=== PATIENT | male | born 1980 | race Caucasian/White ===

== ENCOUNTER 2021-04-06 09:52 | Emergency (ER) | payer SELFPAY ==
[2021-04-06] MEDS ORDERED: SODIUM CHLORIDE 0.9% 500 ML IVB ONE (10:15)
[2021-04-06] MEDS ORDERED: SODIUM CHLORIDE 0.9% 1,000 ML IV ONE (10:15)
[2021-04-06] MEDS ORDERED: OLANZapine 5 MG TAB PO ONE (11:15)
[2021-04-06] MEDS ORDERED: OLANZapine 5 MG TAB ONE (12:09)
[2021-04-06 20:53] LABS: Urine Bacteria NONE SEEN /hpf (None Seen); Urine Blood Negative /uL (Negative); Urine Specific Gravity 1.001 (1.001-1.035); Urine WBC <1 /hpf (0 - 3)
[2021-04-06 21:05] LABS: Alcohol, Urine < 3.0 mg/dL (0-10); Amphetamine Screen, Urine NEGATIVE (NEGATIVE); Barbiturate Scree,Urine NEGATIVE (NEGATIVE); Benzodiazephine Screen, Urine NEGATIVE (NEGATIVE); Cannabinoid Screen, Urine POSITIVE (NEGATIVE); Cocaine Screen, Urine NEGATIVE (NEGATIVE); Opiate Scree,Urine NEGATIVE (NEGATIVE); Phencyclidine Screen, Urine NEGATIVE (NEGATIVE)
[2021-04-07] MEDS ORDERED: HALOPERIDOL LACTATE 5 MG/ML INJ VIAL IM PRN (01:45)
[2021-04-07] MEDS ORDERED: diphenhdrAMINE HCL 50 MG/1 ML VL IM PRN (01:45)
[2021-04-07] MEDS ORDERED: LORazepam 2MG/ML-1ML VIAL IM PRN (01:45)
[2021-04-07] MEDS ORDERED: OLANZapine 5 MG TAB PO SCH (10:00)
[2021-04-07 10:31] VITALS: BP 136/77
== END 2021-04-07 12:23 | disposition left against medical advice (07) ==
LOC: ER 09:52
DX: F20.9 Schizophrenia, unspecified (principal); F17.210 Nicotine dependence, cigarettes, uncomplicated; F12.10 Cannabis abuse, uncomplicated; F15.10 Other stimulant abuse, uncomplicated; Z59.00 Homelessness unspecified; Z20.822 Contact with and (suspected) exposure to COVID-19; Z53.29 Procedure and treatment not carried out because of patient's decision for other reasons
CPT/HCPCS: 36415; 71046; 80307; 81001; 87426; 93005; 96360; 99285; J7030; J7040

== ENCOUNTER 2021-04-08 01:02 | Emergency (ER) | payer MEDICAID, OTHER ==
[~2021-04-08] VITALS: Ht 172.7 cm; Wt 72.6 kg
[2021-04-08 01:33] LABS: Basophils # (auto) 0.1 10 ^3/uL (0-0.2); Basophils % (auto) 1.3 % (0.0-2.0); Eosinophils # (auto) 0.1 10 ^3/uL (0-0.8); Hemoglobin 14.1 g/dL (13.5-17.5); Nucleated Red Blood Cells % 0.1 %
[2021-04-08 01:34] LABS: Eosinophils % (auto) 1.3 % (0.0-7.0); Hematocrit 42.8 % (41.0-53.0); Lymphocytes # (auto) 1.9 10 ^3/uL (0.4-5.4); Lymphocytes % (auto) 22.9 % (10.0-50.0); Mean Corpuscular Hemoglobin 26.8 pg (28.0-32.0); Mean Corpuscular Volume 81.2 fL (80.0-100.0); Monocytes # (auto) 0.7 10 ^3/uL (0-1.3); Monocytes % (auto) 8.2 % (0.0-12.0); Neutrophils # (auto) 5.7 10 ^3/uL (1.6-8.6); Neutrophils % (auto) 66.3 % (37.0-80.0); Red Blood Cells 5.27 10^6/uL (4.5-5.90); Red Cell Distribution Width 14.1 % (11.8-14.3); White Blood Cell 8.5 10^3/uL (4.4-10.8)
[2021-04-08 01:54] LABS: Calcium 8.8 mg/dL (8.5-10.1); Potassium 4.1 mmol/L (3.5-5.1)
[2021-04-08 01:58] LABS: BUN/Creatinine Ratio 3.4; Bilirubin, Total 0.4 mg/dL (0.2-1.0); Total Protein 7.3 g/dL (6.4-8.2)
[2021-04-08 02:10] LABS: Urine Bacteria NONE SEEN /hpf (None Seen); Urine Blood Negative /uL (Negative); Urine Specific Gravity 1.012 (1.001-1.035); Urine Sperm PRESENT /hpf (None Seen); Urine WBC 1 /hpf (0 - 3)
[2021-04-08 16:03] VITALS: BP 121/68
== END 2021-04-08 16:04 | disposition home or self-care (01) ==
LOC: ER 01:04
DX: R45.851 Suicidal ideations (principal); F17.210 Nicotine dependence, cigarettes, uncomplicated; Z59.00 Homelessness unspecified
CPT/HCPCS: 36415; 80053; 81001; 84484; 85025; 93005

== ENCOUNTER 2021-04-09 23:14 | Emergency (ER) | payer MEDICAID ==
[~2021-04-09] VITALS: Ht 180.3 cm; Wt 100.2 kg
[2021-04-10 03:06] LABS: Basophils # (auto) 0.1 10 ^3/uL (0-0.2); Basophils % (auto) 1.1 % (0.0-2.0); Eosinophils # (auto) 0.3 10 ^3/uL (0-0.8); Eosinophils % (auto) 3.1 % (0.0-7.0); Hematocrit 40.2 % (41.0-53.0); Hemoglobin 13.6 g/dL (13.5-17.5); Lymphocytes # (auto) 2.2 10 ^3/uL (0.4-5.4); Lymphocytes % (auto) 26.2 % (10.0-50.0); Mean Corpuscular Hemoglobin 27.2 pg (28.0-32.0); Mean Corpuscular Hgb Conc. 33.9 g/dL (32.0-36.0); Mean Corpuscular Volume 80.2 fL (80.0-100.0); Monocytes # (auto) 0.6 10 ^3/uL (0-1.3); Monocytes % (auto) 7.8 % (0.0-12.0); Neutrophils # (auto) 5.1 10 ^3/uL (1.6-8.6); Neutrophils % (auto) 61.8 % (37.0-80.0); Red Blood Cells 5.01 10^6/uL (4.5-5.90); Red Cell Distribution Width 13.9 % (11.8-14.3); White Blood Cell 8.3 10^3/uL (4.4-10.8)
[2021-04-10 03:25] LABS: Acetaminophen < 2.0 ug/mL (10-30); Alanine Aminotransferase 33 U/L (16-61); Albumin 3.3 g/dL (3.4-5.0); Anion Gap 5 (5-15); Aspartate Aminotransferase 24 U/L (15-37); BUN/Creatinine Ratio 9.6; Blood Alcohol < 3.0 mg/dL (0-5); Blood Urea Nitrogen 9 mg/dL (7-18); Calcium 8.3 mg/dL (8.5-10.1); Carbon Dioxide 29 mmol/L (21-32); Chloride 107 mmol/L (98-107); GFR African American 115 mL/min; GFR Non-African American 95 mL/min; Glucose 118 mg/dL (74-106); Salicylate < 1.7 mg/dL (2.8-20.0); Sodium 141 mmol/L (136-145)
[2021-04-10 03:28] LABS: Alkaline Phosphatase 86 U/L (45-117); Bilirubin, Total 0.2 mg/dL (0.2-1.0); Total Protein 6.1 g/dL (6.4-8.2)
[2021-04-10 10:51] LABS: Urine Amorphous Crystal MOD /hpf (None Seen); Urine Bacteria NONE SEEN /hpf (None Seen); Urine Blood Negative /uL (Negative); Urine Budding Yeast MANY /hpf (None Seen); Urine Mucus FEW (None Seen); Urine Specific Gravity 1.025 (1.001-1.035); Urine WBC 12 /hpf (0 - 3)
[2021-04-10 10:57] LABS: Amphetamine Screen, Urine NEGATIVE (NEGATIVE); Barbiturate Scree,Urine NEGATIVE (NEGATIVE); Benzodiazephine Screen, Urine NEGATIVE (NEGATIVE); Cannabinoid Screen, Urine POSITIVE (NEGATIVE); Cocaine Screen, Urine NEGATIVE (NEGATIVE); Phencyclidine Screen, Urine NEGATIVE (NEGATIVE)
[2021-04-10 11:05] LABS: Opiate Scree,Urine NEGATIVE (NEGATIVE)
[2021-04-10] MEDS: risperiDONE 1 MG TAB PO SCH (22:00)
[2021-04-11] MEDS: risperiDONE 1 MG TAB PO SCH (09:33)
[2021-04-11 22:00] VITALS: BP 118/74
[2021-04-12] MEDS ORDERED: LORazepam 0.5 MG TAB PO ONE ×2 (15:15→15:50)
[2021-04-12] MEDS ORDERED: LORazepam 0.5 MG TAB ONE (15:57)
[2021-04-12] MEDS ORDERED: FAMOTIDINE 20 MG TAB PO ONE ×2 (22:45→23:00)
[2021-04-12] MEDS ORDERED: ONDANSETRON ODT 4 MG TAB PO ONE ×2 (22:45→23:00)
[2021-04-13] MEDS ORDERED: LORazepam 0.5 MG TAB PO ONE ×2 (03:00→15:00)
[2021-04-13] MEDS ORDERED: LORazepam 0.5 MG TAB ONE (03:04)
[2021-04-13] MEDS ORDERED: ASPirin 81 mg TAB PO ONE (15:00)
[2021-04-13] MEDS ORDERED: ALPRAZolam 0.25 MG TAB PO ONE (15:30)
[2021-04-13] MEDS ORDERED: ALPRAZolam 0.25 MG TAB ONE (15:50)
[2021-04-13] MEDS ORDERED: ASPirin-EC 81 mg tab PO ONE (15:50)
== END 2021-04-14 10:21 | disposition home or self-care (01) ==
LOC: ER 23:14
DX: R45.851 Suicidal ideations (principal); F41.9 Anxiety disorder, unspecified; F20.9 Schizophrenia, unspecified; F17.210 Nicotine dependence, cigarettes, uncomplicated; F12.10 Cannabis abuse, uncomplicated; F15.10 Other stimulant abuse, uncomplicated; Z59.00 Homelessness unspecified; Z20.822 Contact with and (suspected) exposure to COVID-19
CPT/HCPCS: 36415; 80053; 80307; 80320; 80329; 81001; 85025; 87426